=== PATIENT | female | born 1980 | race Caucasian/White ===

== ENCOUNTER 2017-02-17 07:08 | Emergency (ER) | payer OTHER ==
[2017-02-17 07:17] VITALS: BP 156/93
--- NOTE | 2017-02-17 08:00 | ED Physician Documentation ---
History of Present Illness - Stated complaint Stated Complaint: LEG PX - Chief complaint Chief Complaint: General - Additonal information Additional information: hx from pt 37 female to ER concerned red DVT had medial L foot now progressed to posterior low thigh to medial mid thigh discomfort over course of a week no OCP, non smoker, no long trips no CP or soa Review of Systems Constitutional: denies: Fever, Chills Cardiac: denies: Chest pain / pressure Respiratory: denies: Dyspnea : reports: LMP (1 week ago). denies: Now EGA (pt denies) Musculoskeletal: reports: Extremity pain Endocrine: denies: Easy bruising / bleeding Immunocompromised: denies: Immunocompromised PD PAST MEDICAL HISTORY - Past Medical History Cardiovascular: None Respiratory: None Neuro: None Endocrine/Autoimmune: None GI: None JAVA INTEGRATION DEVELOPER: Other : None HEENT: None Psych: None Musculoskeletal: None Derm: None Other Past Medical History: pre-eclampsia - Past Surgical History Past Surgical History: No - Present Medications Home Medications: Ambulatory Orders Medication Instructions Recorded Confirmed No Known Home Medications [No 02/17/17 02/17/17 Known Home Medications] - Allergies Allergies/Adverse Reactions: Allergies Allergy/AdvReac Type Severity Reaction Status Date / Time Sulfa (Sulfonamide AdvReac Itching Verified 02/17/17 07:18 Antibiotics) - Social History Does the pt smoke?: No Smoking Status: Never smoker Does the pt drink ETOH?: Yes Does the pt have substance abuse?: No PD ED PE NORMAL - Vitals Vital signs reviewed: Yes - Cardiac Cardiac: RRR - Respiratory Respiratory: No respiratory distress, Clear bilaterally - Abdomen Abdomen: Soft, Non tender - Extremities Extremities: Other (no sig edema or discolorsation, TTP medial popliteal region and midial mid thigh ? palp cord, neg homans, MSV intact) Results - Vitals Vitals: Vital Signs - 24 hr 02/17/17 07:13 Temperature 36.1 C L Heart Rate 75 Respiratory 16 Rate Blood Pressure 156/93 H O2 Saturation 98 Oxygen O2 Source Room air - Rads (name of study) LLE doppler Radiology: See rad report (neg) Departure - Departure Disposition: 01 Home, Self Care Clinical Impression: Leg pain, left Condition: Good Comments: The ultrasound was fine - no blood clot was seen. Would recommend a non-steroidal anti-inflammatory such as motrin or naproxen and warm compresses. If the symptoms do not subside by the end of the week, please see your PMD for a recheck and consideration of another ultrasound - occasionally a small clot can be difficult to see on initial ultrasound so if the symptoms persist it would be worth doing another ultrasound Also please get your blood pressure rechecked - it was high today Forms: Activity restrictions
--- NOTE | 2017-02-17 09:08 | Ultrasound Report ---
EXAM: LEFT LOWER EXTREMITY VENOUS ULTRASOUND EXAM DATE: 02/17/2017 08:55 AM. CLINICAL HISTORY: Posterior medial LLE pain ? cord. COMPARISON: None. TECHNIQUE: Real-time sonographic vascular imaging was performed by the small electric engine technician through the lower extremity utilizing both color-flow and Doppler spectral analysis. Multiple inbound customer service representative static tyson ges were saved for review. FINDINGS: Common Femoral Vein (CFV): Normal. CFV-GSV Junction: Normal. Profunda Femoral Vein (PFV): Normal. Femoral Vein (FV) Prox: Normal. Femoral Vein (FV) Mid: Normal. Femoral Vein (FV) Dist: Normal. Popliteal Vein: Normal. Posterior Tibial Veins: Normal. Peroneal Veins: Normal. Contralateral Side CFV: Normal. Other: None. IMPRESSION: No evidence for deep venous thrombosis. [facility] Referring Provider Line: [phone] SITE ID: [id number]
--- NOTE | 2017-02-17 09:08 | Ultrasound Preliminary Report ---
Exam: US Duplex Ext Veins Left IMPRESSION: No evidence for deep venous thrombosis. [facility] SITE ID: [id number]
== END 2017-02-17 09:22 | disposition home or self-care (01) ==
LOC: ED 07:08
DX: M79.652 Pain in left thigh (principal); R03.0 Elevated blood-pressure reading, without diagnosis of hypertension
CPT/HCPCS: 99283